=== PATIENT | male | born 1995 | race Caucasian/White ===

== ENCOUNTER → 2023-12-12 17:01 | Outpatient (REF) | payer OTHER, SELFPAY | LOC: RAD 17:01 | PROVIDERS: ATTENDING PHYSICIAN Physician Assistant Medical | DX: R05.1 Acute cough (principal) | CPT/HCPCS: 71046 ==

== ENCOUNTER → 2024-07-21 19:13 | Outpatient (REF) | payer OTHER, SELFPAY | LOC: MRI 3T 19:13 | PROVIDERS: ATTENDING PHYSICIAN Physician Assistant Medical | DX: G93.9 Disorder of brain, unspecified (principal) | CPT/HCPCS: 70553; A9575 ==

== ENCOUNTER 2024-07-28 18:43 | Emergency (ER) | payer OTHER, SELFPAY ==
[2024-07-28 18:45] VITALS: BP 126/73
[2024-07-28 19:14] LABS: % Basophils 0.6 % (0-2); % Eosinophils 2.8 % (0-6); % Immature Granulocytes 0.2 % (0-0.5); % Lymphocytes 41.6 % (20.5-51.1); % Monocytes 7.8 % (1.7-9.3); Absolute Eosinophils 0.2 10^3/uL (0-0.7); Absolute Lymphocytes 2.7 10^3/uL (1.2-3.4); Absolute Monocytes 0.5 10^3/uL (0.1-0.6); Absolute Neutrophils 3.1 10^3/uL (1.4-6.5); Hemoglobin 12.6 g/dL (13.0-18.0); Mean Corp Hgb Conc. 34.1 g/dL (33.0-37.0); Mean Corpuscular Hgb 22.3 pg (27.0-31.0); Mean Corpuscular Volume 65.6 fL (80.0-94.0); Mean Platelet Volume 9.3 fL (7.4-10.4); Nucleated Red Blood Cells % 0 % (-); Platelet Count 247 10^3/uL (130-400); Red Blood Cell Count 5.64 10^6/uL (4.70-6.10); Red Cell Dist. Width 15.6 % (11.5-14.5); White Blood Cell Count 6.5 10^3/uL (4.8-10.8)
[2024-07-28 19:25] LABS: ALT (SGPT) 21 U/L (0-50); AST (SGOT) 23 U/L (17-59); Albumin 4.9 g/dl (3.5-5.0); Alkaline Phosphatase 84 U/L (38-126); Blood Urea Nitrogen 26 mg/dl (9-20); Calcium 9.7 mg/dl (8.4-10.2); Carbon Dioxide 22 mmol/L (22-30); Chloride 102 mmol/L (98-107); Glucose 92 mg/dl (70-99); Potassium 4.2 mmol/L (3.5-5.1); Sodium 142 mmol/L (135-145); Total Bilirubin 0.7 mg/dl (0.2-1.3); Total Protein 7.7 g/dl (6.3-8.2); eGFR > 60.00
[2024-07-28 20:42] VITALS: BMI 27.4
[2024-07-28 20:49] VITALS: BP 124/80
[2024-07-28 21:00] VITALS: BP 115/72
--- NOTE | 2024-07-28 21:19 | ED.GENMED ---
History of Present Illness
General
Chief Complaint: Dizziness
Source: patient
Exam Limitations: none
Time Seen by Provider: 07/28/24 20:42
Nursing documentation reviewed up to this point in time: agreed with
History of Present Illness
History of Present Illness:
29 y/o M with some mild anxiety
here with 9 + months of feeling 'off'
brain fog, jitteriness, twitching of his face sometimes (mostly night), balance issues (sometimes he bumps into things), occasional headaches, lightheadendess
he has had w/u iwith pcp including extensive blood work (pending lyme test recently, not resulted), and brain MRI which he had done last week
the read on the brain MRI is:
1. Mild Chiari I malformation.
2. 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
3. Tiny subcortical white matter lesion in the right frontal lobe which is likely unchanged.
pt says he humphreys sappt with neuro at [facility] in 2 weeks
he has since felt more anxious about these symptoms and feels his symptoms are worse - there are no new symptoms
just having more intense feeling of not beeing well, feeling 'off' having some jtiteriness and twitching
he did look up some of theses findings on mri and is worried
he has xanax for as needed, doesn't like to take meds so he rarely uses it
he and his have 2 mo old
going well, no SI/depression
Past History
Past History
ED Past Medical History: None
ED Past Surgical History: None
Social History
Tobacco: Non-smoker
Personal: Single
Employment: Other (Student)
Review of Systems
Review of Systems
Allergies reviewed?: Yes
All Other Systems: Not applicable
Phy Exam
Physical Exam
Physical Exam:
GENERAL: Alert , in no apparent distress
seems slightly anxious
HEAD: NCAT
EYE: pupils equal and reactive, no nystagmus, no photophobia
NECK: Supple,full rom, nontender
ENT: o/p clr, mmm.
CARDIAC: Regular rate and rhythm . no edema
LUNGS: Clear breath sounds bilaterally, no acute respiratory distress, no wheezes/rales/rhonchi
ABDOMEN: Soft, without focal tenderness, no r/g, no cvat
NEUROLOGICAL: Alert and orientedx 4, cn intact, no facial asymmetry, 5/5 strength in UE/LE, sensation intact, romberg neg, ambulates without assistance, neg pronator drift finger to nose normal
SKIN: Warm and dry, skin intact.
MUSCULOSKELETAL: No edema, well perfused.
PSYCH: no SI/depresion
has some anxiety
but has good insight into his situtaion
Course
Orders/Labs/Results
Orders:
Orders
07/28/24 18:45
EKG [Electrocardiogram (*1)] Stat
Reason for Study: Vertigo / Dizzy
EKG- Treatment ONCE
07/28/24 19:00
Complete Blood Count/With Diff Urgent
Comprehensive Metabolic Panel Urgent
07/28/24 21:39
COVID-19 Antigen Urgent
Source: Nasal Swab
07/28/24 22:13
Sertraline HCl [Zoloft] 25 mg PO NOW STA
Abnormal Lab Results
07/28/24
19:00
Hgb 12.6 L g/dL
(13.0-18.0)
Hct 37.0 L %
(39.0-52.0)
MCV 65.6 L fL
(80.0-94.0)
MCH 22.3 L pg
(27.0-31.0)
RDW 15.6 H %
(11.5-14.5)
BUN 26 H mg/dl
(9-20)
07/28/24 19:00
07/28/24 19:00
Vital Signs
Initial and Last Documented VS:
Initial Vital Signs
Temp Pulse Resp BP Pulse Ox
99.5 F 62 16 126/73 100
07/28/24 18:45 07/28/24 18:45 07/28/24 18:45 07/28/24 18:45 07/28/24 18:45
Last Documented Vital Signs
Temp Pulse Resp BP Pulse Ox
99.5 F 61 16 134/88 98
07/28/24 18:45 07/28/24 22:15 07/28/24 22:15 07/28/24 22:00 07/28/24 21:45
MDM/Problems Addressed
Differential Diagnosis Includes:
anxiety, mood disorder, underlying neuro condition, lyme, long covid, touretts, seizure'
MDM/Problems Addressed:
29 yo M
motns of vagues symptoms, brain fog, jitteriness, twithcing of face (worse at night), feeling just not himself, balance off
no real new symptoms today symptoms seem a little bit worse over the last 24 hours. He had an MRI as an outpatient of his brain showing a venous anomaly in the temporal lobe which is developmental. This is worrisome to him. He has a neurology
appointment but not for 2 weeks and when the symptoms just felt worse tonight he decided to come in. He does have Xanax which he occasionally takes for severe symptoms of anxiety but tries not to take it. It does seem to help. More of his
symptoms are occurring at night versus daytime. He does have a new baby but he says things are going well. He is here with his parents. His neuroexam is intact. He is bradycardic in the 50s but it is sinus and he has chronic bradycardia, he is
healthy and exercises. He has no symptoms of syncope or lightheadedness. EKG sinus bradycardia, QTc is slightly shortened prolonged. His neuroexam is intact. His blood work shows that he is mildly dehydrated with elevated BUN. COVID was
negative. I did review the MRI findings with the on-call neurologist who suggested that a lot of times developmental venous anomalies in the temporal lobe can cause some mood changes and that sertraline will be really helpful. She recommended
starting that. I discussed risk benefits of starting this medicine and he would prefer to start it for now. Will take it at night 25 mg. I gave him month supply but told him to discuss with the new neurologist in 2 weeks. He feels comfortable
with this plan. He will return for any concerns
*Critical Care Note
Total Time (30-74mins, 75-104mins- exclusive of procedures): Not Applicable
ED Attending Note
-
Portions of this chart may have been created with voice recognition software.� Occasional wrong word or��sound alike� substitutions may have occurred due to the inherent limitations of voice recognition software.
Discharge Plan
Departure
Patient Disposition: Home (Routine Discharge)
Date of Disposition: 07/28/24
Time of Disposition: 22:05
Patient with high blood pressure during this ER visit?: No
Condition: Fair
Covid-19: Not Applicable
Discharge Problem:
Occasional tremors, Anxiety
Instructions: Dizziness, Nonvertigo, (DC)
Prescriptions:
New
sertraline 25 mg tablet
25 mg PO HS Qty: 30 0RF
No Action
multivitamin [Scl-Iqrkgy-Jrmei] 1 EACH tablet
1 ea PO DAILY
ondansetron 4 MG tablet,disintegrating
4 mg PO Q8H Qty: 12 0RF
Referrals:
UNKNOWN - PT DOES,NOT KNOW [Unknown Provider] -
Activity Restrictions/Additional Instructions:
I reviewed your MRI report. You do have a venous anomaly that could predispose you to having some tremors and mood symptoms. The neurologist on-call recommended just starting a low-dose sertraline for your symptoms. Take 25 mg once at night every
day before bed.
Follow-up with the neurologist in 2 weeks as planned. Return for worsening symptoms like severe headache, weakness or numbness or tingling in your arms or legs, suicidal thoughts, worsening tremors or any concerns.
Interventions
Interventions:
*Risk Screen - Suicide Last Done: 07/28/24 18:44
*General Assessment Last Done: 07/28/24 20:42
*Neglect/Abuse Screening Last Done: 07/28/24 20:42
ED- Fall Risk Assessment Last Done: 07/28/24 20:42
*ED COVID-19 Vaccine History Last Done: 07/28/24 20:42
*Nursing Disposition Last Done: 07/28/24 22:52
ED- Neurological Assessment Last Done: 07/28/24 20:42
ED- Cardiac Assessment Last Done: 07/28/24 20:42
ED Swallowing Screen Last Done: 07/28/24 20:42
Discharge Date and Time
Discharge Date/Time: 07/28/24 22:54
Print Language: BENGALI
[2024-07-28 22:00] VITALS: BP 134/88
[2024-07-28 22:07] LABS: COVID-19 Antigen Negative (Negative)
[2024-07-28] MEDS: ZOLOFT 25 MG PO (22:43)
== END 2024-07-28 22:54 | disposition home or self-care (01) ==
LOC: EMR 18:43
PROVIDERS: Physician Assistant; Student in an Organized Health Care Education/Training Program; EMERGENCY PHYSICIAN Emergency Medicine; FAMILY PHYSICIAN Physician Assistant Medical
DX: R25.3 Fasciculation (principal); R25.1 Tremor, unspecified; R51.9 Headache, unspecified; R42 Dizziness and giddiness; F41.9 Anxiety disorder, unspecified; R00.1 Bradycardia, unspecified; E86.0 Dehydration; Z11.52 Encounter for screening for COVID-19; G93.5 Compression of brain; Z88.1 Allergy status to other antibiotic agents; Z88.0 Allergy status to penicillin
CPT/HCPCS: 99284; 80053; 85025; 87811; 93005

== ENCOUNTER 2024-08-09 23:47 | Emergency (ER) | payer OTHER, SELFPAY ==
[2024-08-10 00:01] VITALS: BP 146/86
--- NOTE | 2024-08-10 02:59 | ED.GENMED ---
History of Present Illness
<Shellie Samaniego MD - Last Filed: 08/10/24 04:24>
General
Chief Complaint: Chest Problem
Source: patient
Exam Limitations: none
Time Seen by Provider: 08/10/24 02:59
<GUS Monge - Last Filed: 08/10/24 03:09>
History of Present Illness
History of Present Illness:
Pt is a 29 y/o M with pmhx of anxiety presents with complaints of chest tightness x 6 hrs. Pt stated that he went to bed at around 9 pm and started experiencing mild discomfort his chest and left arm. He took half a xanax about 1 hour prior to
arrival to ED with some relief. Course of symptoms is improving. Denies SOB, abdominal pain, calf pain, or palpitations.
Past History
<Shellie Samaniego MD - Last Filed: 08/10/24 04:24>
Past History
ED Past Medical History: None
ED Past Surgical History: None
Social History
Tobacco: Non-smoker
Alcohol: Other
Drug: None
Personal:
Living: with family
Employment: Employed (Student)
Family History
Family History: Other
<GUS Monge - Last Filed: 08/10/24 03:09>
Past History
ED Past Medical History: Psychiatric (anxiety)
Review of Systems
<GUS Monge - Last Filed: 08/10/24 03:09>
Review of Systems
Allergies reviewed?: Yes
Constitutional: Reports no symptoms
EENT: Reports no symptoms
Respiratory: Reports no symptoms
Cardiac: Reports chest pain
ABD/GI: Reports no symptoms
: Reports no symptoms
Musculoskeletal: Reports no symptoms
Skin: Reports no symptoms
Neurological: Reports no symptoms
Endocrine: Reports no symptoms
Hematologic/Lymphatic: Reports no symptoms
Psychiatric: Reports no symptoms
Phy Exam
<Shellie Samaniego MD - Last Filed: 08/10/24 04:24>
Physical Exam
Physical Exam:
Physical Exam
General: no apparent distress, not acutely ill. Smiling, conversational
Neck: supple. no meningeal signs. normal psoterior pharynx
Heart: s1/s2 regular rate and rhythm, no murmur. equal radial pulses. Mild upper bilateral chest wall tenderness.
Lungs: no acute respiratory distress. clear bilaterally
Abdomen: normal bowel sounds. not tender. no CVAT
Neuro: alert and oriented. no focal neurological deficits
Skin: no rash
Psychiatric: well kept. interactive and cooperative
Extremities: no edema. no calf tenderness. negative homans. good distal pulses
<GUS Monge - Last Filed: 08/10/24 03:09>
General Physical Exam
General Presentation: well appearing and no apparent distress
General age: appears stated age
General Skin: warm and dry
General Habitus: normal
General Mental: alert
General Hydration: appears well hydrated
ENT Exam
ENT Exam: EOMI, TM's normal, pharynx normal and neck supple
Eye Exam
Eye Exam: PERRL, EOMI, cornea clear and conjunctiva normal
Cardiovascular Exam
Cardiovascular Exam: regular rate/rhythm, no edema, no gallop, no JVD, no murmur, normal peripheral pulses and bradycardia
Pulmonary Exam
Pulmonary Exam: lungs clear, no respiratory distress, no rales, chest non tender, no crackles, no rhonchi, no stridor, no wheezing and no cough
Gastrointestinal Exam
Gastrointestinal Exam: non tender, soft and non distended
Neurological Exam
Neurological Exam: alert, oriented x3, CN II-XII intact, no motor deficits, normal reflexs, no sensory deficits and speech normal
Musculoskeletal Exam
Musculoskeletal Exam: full ROM, no edema and neuro vasc intact
Skin Exam
Skin Exam: normal color and warm/dry
Psychiatric Exam
Psychiatric Exam: normal mood/affect
Course
<Shellie Samaniego MD - Last Filed: 08/10/24 04:24>
Orders/Labs/Results
Orders:
Orders
08/09/24 23:48
ECG [Electrocardiogram (*1)] Urgent
Reason for Study: Chest Pain
Other Reason for Exam: into left arm
EKG- Treatment ONCE
08/10/24 00:39
Cardiac Monitoring- Treatment ONCE
IV Insert/Care/Rem.- Treatment PRN
O2 Therapy [RESP] Urgent
Titrate/Wean O2 to maintain O2 sat greater than (%): 90
Special Instructions: Maintain sats >/=90%
Pulse Ox/spot Check [RESP] Urgent
Quantity: 1
Special Instructions: ON ROOM AIR
08/10/24 03:34
Complete Blood Count/With Diff Urgent
Comprehensive Metabolic Panel Urgent
Troponin I Urgent
Abnormal Lab Results
08/10/24
03:34
Hgb 12.6 L g/dL
(13.0-18.0)
Hct 38.7 L %
(39.0-52.0)
MCV 66.5 L fL
(80.0-94.0)
MCH 21.6 L pg
(27.0-31.0)
MCHC 32.6 L g/dL
(33.0-37.0)
RDW 15.6 H %
(11.5-14.5)
MPV 10.7 H fL
(7.4-10.4)
Neutrophils % 41.3 L %
(42.2-75.2)
08/10/24 03:34
08/10/24 03:34
Vital Signs
Initial and Last Documented VS:
Initial Vital Signs
Temp Pulse Resp BP Pulse Ox
97.7 F 59 18 146/86 98
08/10/24 00:01 08/10/24 00:01 08/10/24 00:01 08/10/24 00:01 08/10/24 00:01
Last Documented Vital Signs
Temp Pulse Resp BP Pulse Ox
97.7 F 59 18 146/86 98
08/10/24 00:01 08/10/24 00:01 08/10/24 00:01 08/10/24 00:01 08/10/24 00:01
<GUS Monge - Last Filed: 08/10/24 03:09>
Orders/Labs/Results
Orders:
Orders
08/09/24 23:48
ECG [Electrocardiogram (*1)] Urgent
Reason for Study: Chest Pain
Other Reason for Exam: into left arm
EKG- Treatment ONCE
08/10/24 00:39
Cardiac Monitoring- Treatment ONCE
IV Insert/Care/Rem.- Treatment PRN
O2 Therapy [RESP] Urgent
Titrate/Wean O2 to maintain O2 sat greater than (%): 90
Special Instructions: Maintain sats >/=90%
Pulse Ox/spot Check [RESP] Urgent
Quantity: 1
Special Instructions: ON ROOM AIR
08/10/24 03:34
Complete Blood Count/With Diff Urgent
Comprehensive Metabolic Panel Urgent
Troponin I Urgent
Abnormal Lab Results
08/10/24
03:34
Hgb 12.6 L g/dL
(13.0-18.0)
Hct 38.7 L %
(39.0-52.0)
MCV 66.5 L fL
(80.0-94.0)
MCH 21.6 L pg
(27.0-31.0)
MCHC 32.6 L g/dL
(33.0-37.0)
RDW 15.6 H %
(11.5-14.5)
MPV 10.7 H fL
(7.4-10.4)
Neutrophils % 41.3 L %
(42.2-75.2)
08/10/24 03:34
08/10/24 03:34
Vital Signs
Initial and Last Documented VS:
Initial Vital Signs
Temp Pulse Resp BP Pulse Ox
97.7 F 59 18 146/86 98
08/10/24 00:01 08/10/24 00:01 08/10/24 00:01 08/10/24 00:01 08/10/24 00:01
Last Documented Vital Signs
Temp Pulse Resp BP Pulse Ox
97.7 F 59 18 146/86 98
08/10/24 00:01 08/10/24 00:01 08/10/24 00:01 08/10/24 00:01 08/10/24 00:01
<Shellie Samaniego MD - Last Filed: 08/10/24 04:24>
MDM/Problems Addressed
Differential Diagnosis Includes:
Musculoskeletal chest pain, acute coronary syndrome, pneumonia, PE
MDM/Problems Addressed:
Patient presents with acute chest pain
Acute Exacerbation and/or Progression of Chronic Illness:
Patient is acutely hypertensive, likely due to being in the ED and being a little nervous
Acute Exacerbation and/or Progression of Chronic Illness: HTN
<GUS Monge - Last Filed: 08/10/24 03:09>
MDM/Problems Addressed
Differential Diagnosis Includes:
Chest pain
<Shellie Samaniego MD - Last Filed: 08/10/24 04:24>
*Pulse Oximetry
Patient hypoxic: no
*EKG
Interpreted by ED Provider?: Yes
Interpretation: normal
Comparison EKG: no comparison EKG present
Rate: bradycardiac
Rhythm: sinus
[place]: normal axis
Interval: normal interval
QRS Pattern: normal QRS
Ischemia: no ischemia
*Trolley Cleaner Interpretation
Rate: bradycardiac
Interpretation: normal
Rhythm: sinus
Data Reviewed
Source: patient
<GUS Monge - Last Filed: 08/10/24 03:09>
*Critical Care Note
Total Time (30-74mins, 75-104mins- exclusive of procedures): Not Applicable
<Shellie Samaniego MD - Last Filed: 08/10/24 04:24>
Update Note
Update Note:
Patient remains well and comfortable. Troponin is negative. EKG is nonischemic. Patient really has no specific risk factors for acute coronary syndrome. Lungs are clear and there is no suggestion of pneumonia.
ED Attending Note
<Shellie Samaniego MD - Last Filed: 08/10/24 04:24>
-
Portions of this chart may have been created with voice recognition software.� Occasional wrong word or��sound alike� substitutions may have occurred due to the inherent limitations of voice recognition software.
Discharge Plan
Departure
Patient Disposition: Home (Routine Discharge)
Date of Disposition: 08/10/24
Time of Disposition: 04:23
Patient with high blood pressure during this ER visit?: Yes
Condition: Good
Covid-19: Not Applicable
Discharge Problem:
Chest pain in adult
Instructions: Chest Pain PCP Follow Up, BLOOD PRESSURE
Prescriptions:
No Action
multivitamin [Qoa-Stzioz-Krgsv] 1 EACH tablet
1 ea PO DAILY
ondansetron 4 MG tablet,disintegrating
4 mg PO Q8H Qty: 12 0RF
sertraline 25 mg tablet
25 mg PO HS Qty: 30 0RF
Referrals:
Kieran Zamorano PA-C [Family Provider] -
Interventions
Interventions:
*Risk Screen - Suicide Last Done: 08/10/24 00:01
*Neglect/Abuse Screening Last Done: 08/10/24 00:04
ED- Fall Risk Assessment Last Done: 08/10/24 04:18
ED- Cardiac Assessment Last Done: 08/10/24 04:18
ED- Pulmonary Assessment Last Done: 08/10/24 04:18
Discharge Date and Time
Print Language: TONGAN
[2024-08-10 04:09] LABS: ALT (SGPT) 23 U/L (0-50); AST (SGOT) 22 U/L (17-59); Albumin 4.6 g/dl (3.5-5.0); Alkaline Phosphatase 62 U/L (38-126); Blood Urea Nitrogen 18 mg/dl (9-20); Calcium 9.6 mg/dl (8.4-10.2); Carbon Dioxide 26 mmol/L (22-30); Chloride 104 mmol/L (98-107); Glucose 95 mg/dl (70-99); Potassium 4.2 mmol/L (3.5-5.1); Sodium 142 mmol/L (135-145); Total Bilirubin 1.1 mg/dl (0.2-1.3); Total Protein 7.4 g/dl (6.3-8.2); eGFR > 60.00
[2024-08-10 04:12] LABS: % Basophils 0.7 % (0-2); % Eosinophils 3.2 % (0-6); % Immature Granulocytes 0.2 % (0-0.5); % Lymphocytes 46.4 % (20.5-51.1); % Monocytes 8.2 % (1.7-9.3); % Neutrophils 41.3 % (42.2-75.2); Absolute Eosinophils 0.2 10^3/uL (0-0.7); Absolute Lymphocytes 2.8 10^3/uL (1.2-3.4); Absolute Monocytes 0.5 10^3/uL (0.1-0.6); Absolute Neutrophils 2.5 10^3/uL (1.4-6.5); Hematocrit 38.7 % (39.0-52.0); Hemoglobin 12.6 g/dL (13.0-18.0); Mean Corp Hgb Conc. 32.6 g/dL (33.0-37.0); Mean Corpuscular Hgb 21.6 pg (27.0-31.0); Mean Corpuscular Volume 66.5 fL (80.0-94.0); Mean Platelet Volume 10.7 fL (7.4-10.4); Nucleated Red Blood Cells % 0 % (-); Platelet Count 226 10^3/uL (130-400); Red Blood Cell Count 5.82 10^6/uL (4.70-6.10); Red Cell Dist. Width 15.6 % (11.5-14.5)
[2024-08-10 04:18] LABS: Troponin I < 0.012 ng/ml
== END 2024-08-10 04:36 | disposition home or self-care (01) ==
LOC: EMR 23:47
PROVIDERS: EMERGENCY PHYSICIAN Emergency Medicine; FAMILY PHYSICIAN Physician Assistant Medical
DX: R07.89 Other chest pain (principal); M79.602 Pain in left arm; R03.0 Elevated blood-pressure reading, without diagnosis of hypertension; F41.9 Anxiety disorder, unspecified; Z88.1 Allergy status to other antibiotic agents; Z88.0 Allergy status to penicillin
CPT/HCPCS: 99283; 94760; 80053; 84484; 85025; 93005

== ENCOUNTER → 2025-09-16 17:04 | Outpatient (REF) | payer OTHER, SELFPAY | LOC: RAD 17:04 | PROVIDERS: ATTENDING PHYSICIAN Physician Assistant Medical | DX: J01.00 Acute maxillary sinusitis, unspecified (principal); R05.1 Acute cough | CPT/HCPCS: 71046 ==